=== PATIENT | female | born 1960 | race Caucasian/White ===

== ENCOUNTER 2023-11-07 13:04 | Outpatient (CLI) | payer BC, SELFPAY ==
[2023-11-07 14:35] LABS: Basophils Percent Auto 0.3 % (0.2-1.2); Eosinophils Percent Auto 0.3 % (0-4.4); Hematocrit 39.7 % (37.0-47.0); Hemoglobin 12.7 g/dL (12.0-15.0); Immature Granulocyte Absolute 0.03 K/mm3 (0.00-0.031); Immature Granulocyte Percent A 0.3 % (0-0.5); Lymphocytes Absolute Auto 2.53 K/mm3 (0.9-3.2); Lymphocytes Percent Auto 26.3 % (18.3-44.2); Mean Corpuscular Hemoglobin 32.7 pg (26-34); Mean Corpuscular Volume 102.3 fl (80-100); Mean Platelet Volume 8.8 fl (7.4-10.4); Monocytes Absolute Auto 0.6 K/mm3 (0.1-0.6); Neutrophils Absolute Auto 6.4 K/mm3 (1.3-6.7); Neutrophils Percent Auto 66.8 % (45.5-73.1); Platelet Count Result 250 k/mm3 (150-375); Red Blood Count 3.88 M/mm3 (4.2-5.4); Red Cell Distribution Width 13.2 % (11.5-14.5); White Blood Count 9.6 K/mm3 (4.5-10.0)
[2023-11-07 14:47] LABS: Alanine Aminotransferase 13 U/L (6-35); Albumin Level 3.9 g/dL (3.5-5.1); Alkaline Phosphatase 92 U/L (38-126); Anion Gap 4 mmol/L (8-16); Aspartate Amino Transferase 24 U/L (14-36); Bilirubin,Total 0.4 mg/dL (0.2-1.3); Blood Urea Nitrogen 11 mg/dL (7-17); Calcium 9.1 mg/dL (8.4-10.2); Carbon Dioxide 31 mmol/L (22-30); Chloride 105 mmol/L (98-107); Estimated Glomerular Filt Rate > 60; Glucose 112 mg/dL (65-110); Potassium 3.8 mmol/L (3.4-5.0); Sodium 140 mmol/L (137-145)
[2023-11-07 14:49] LABS: Prothrombin Time 14.1 Seconds (11.1-14.7)
[2023-11-07 14:50] LABS: Partial Thromboplastin Time 34.5 SECONDS (22.3-36.8)
== END 2023-11-07 13:05 | disposition home or self-care (01) ==
PROVIDERS: PCP Family Medicine; Visit Provider Urology
DX: Z01.818 Encounter for other preprocedural examination (principal)
CPT/HCPCS: 36415; 80053; 85025; 85610; 85730; 86850; 86900; 86901

== ENCOUNTER 2023-11-14 01:35 | Day surgery (SDC) | payer BC, SELFPAY ==
--- NOTE | 2023-11-06 17:35 | PM.IMHP ---
H&P: HPI History of Present Illness Date/Time: 11/06/23 17:35 Chief Complaint: pelvic organ prolapse Narrative: post hysterectomy pelvic organ prolapse and stress incontinence noted on urodynamics. Desires surgical correction Review of Systems Review of Systems: All systems reviewed & are unremarkable except as noted in HPI and below
[2023-11-07 13:24] VITALS: BP 101/59; PULSE 62; RESP 16; TEMP 36.9; O2SAT 97; BMI 27.5
--- NOTE | 2023-11-07 13:40 | PC.NURSE ---
Addendum entered by Sirena Ashraf RN 11/10/23 15:30: PATIENT WAS BRIEFLY CANCELED R/T NEED FOR CLEARANCE. CLEARANCE RECEIVED TODAY AT 1427 AND PT PUT BACK ON SCHEDULE. NO CHANGE OF DATE OR TIMES FROM ORIGINAL SURGERY. PT CALLED, ALL PRE-OP INSTRUCTIONS REVIEWED. PT RELAYS UNDERSTANDING. Original Note: Report to the Outpatient Waiting Room, entrance under the green pavilion located off [facility], at time __6:00AM on date ___11/14/23____. Planned Procedure Time: __7:30AM . Time changes happen often and if your time is changed the preop area will call you the afternoon before. - You and your visitor will be asked to self-screen and do not enter if you have any COVID symptoms. - A mask is optional within the hospital at this time. Patients may have clear liquids (water, carbonated beverages, clear teas, apple juice) until 3 hours prior to surgery with a maximum of 20 ounces. - No food from midnight until time of surgery. Take the following medications with a SIP of water the morning of surgery: _ALPRAZOLAM, ALBUTEROL INHALER AND HYDROCODONE NEEDED DO NOT STOP ANY OF YOUR OTHER PRESCRIPTION MEDICATIONS PRIOR TO SURGERY ?EXCEPT THE FOLLOWING Medications to discontinue per physician ___HOLD ALL VITAMINS/SUPPLEMENTS 3 DAYS PRE-OP PER ANESTHESIA Date to take last dose____11/10/23 Please no make-up, nail [place] citizen, hairspray, perfume, deodorant, or body powder the day of surgery. No jewelry (including any body piercings) or valuables the day of surgery, leave them at home. Please take a shower or bath the night before, or the morning of, surgery with an antibacterial soap. Wear comfortable, loose fitting clothing. - Jewelry must be removed prior to entering the operating room. Rings and piercings that are not removed may be cut off. - The hospital will not accept responsibility for valuables. - Please leave all valuables, including medications, at home the day of surgery. If you are going home after surgery, a licensed diesel pile driver operator must drive you home. - NO public transportation without another adult if you receive anesthesia. - We recommend that an adult stay with you for 24 hours following discharge. - We also recommend that you do not drive, make important decision, drink alcoholic beverages, or take any drugs that were not prescribed by your health care provider for at least 24 hours after your discharge time. Follow any additional instructions given to you from your surgeon. If you or anyone in your household have experienced Covid symptoms in the past week, please notify your surgeon or the nurse liaison at the phone number below for possible testing. Telephone instructions given to __PATIENT & DAUGHTER and asked if any additional questions and then verbalized understanding. Patient advised to call surgeon office or pre surgery nurse liaison [phone] if any additional questions.
--- NOTE | 2023-11-13 10:10 | PM.IMHP ---
H&P: HPI History of Present Illness Date/Time: 11/13/23 10:10 Chief Complaint: Prolapse and stress incontinence Narrative: 63-year-old with post hysterectomy vaginal vault prolapse as well stress incontinence. She desires surgical correction Review of Systems Review of Systems: All systems reviewed & are unremarkable except as noted in HPI and below [facility] Social History Social History Smoking packs per day: 1 Smoking cigarettes per day: 20.0 Years smoked: 15 Smoking pack-years: 15.00 Smoking status: Current every day smoker Tobacco type: cigarettes Additional smoking assessment comments: CURRENTLY SMOKING LESS THAN A PACK/DAY Living arrangements: with family Additional living arrangements comments: BOYFRIEND Spiritual care concerns: No Meds Home Medications and Allergies Home Medications Medication Instructions Recorded Confirmed Type albuterol (refill) 90 90 mcg inhalation Q4-6H PRN 11/07/23 11/07/23 History mcg/actuation aerosol inhaler Shortness Of Breath Or Wheezing alprazolam 0.5 mg tablet 0.5 mg PO TID PRN Anxiety 11/07/23 11/07/23 History cholecalciferol (vitamin D3) 50 50 mcg PO DAILY 11/07/23 11/07/23 History mcg (2,000 unit) tablet hydrocodone 10 mg-acetaminophen 1 tablet PO QID PRN Pain 11/07/23 11/07/23 History 325 mg tablet trazodone 100 mg tablet 100 mg PO HS 11/07/23 11/07/23 History vitamin B complex (Vitamins B 1 cap PO DAILY 11/07/23 11/07/23 History Complex capsule) Allergies Allergy/AdvReac Type Severity Reaction Status Date / Time No Known Allergies Allergy Verified 11/07/23 13:17 Exam Narrative: No acute distress Normal breathing Positive urethral mobility Anterior wall at +2 Loss of apical support at -1-2 Assessment and Plan Assessment and plan (1) Prolapse of vaginal vault after hysterectomy: Code(s): N99.3 - Prolapse of vaginal vault after hysterectomy Status: Acute (2) YAMILKA (stress urinary incontinence, female): Code(s): N39.3 - Stress incontinence (female) (male) Status: Acute Plan Plan for robotic colpopexy and urethral sling. Understands risks of bleeding, infection, damage to organs, damage to urinary tract, recurrent or persistent prolapse recurrent or persistent incontinence, hip and leg pain, dyspareunia, mesh related complications including exposure and extrusion. Agrees to proceed.
[2023-11-14] VITALS (10 sets, daily range): BP systolic 113–132; BP diastolic 59–84; PULSE 53–80; RESP 12–18; TEMP 36.2–37; O2SAT 93–100
--- NOTE | 2023-11-14 04:35 | WPDHPUPDATE1 ---
History and Physical Update Update Date/Time: 11/14/23 04:35 History and Physical has been reviewed, including an updated exam of the patient. There are NO changes in the patient's condition. Risks, benefits, and alternatives have been discussed and questions answered. Patient agrees to proceed with procedure.
[2023-11-14] MEDS: LACTATED RINGERS 1,000 ML 30 ML IV CONT ×2 (06:40→10:21)
--- NOTE | 2023-11-14 07:05 | WPDANESEPPF ---
Anes - Initial Pre Proc Eval Procedure: Operation Date: 11/14/23 07:30 Proposed Procedures p Robotic Sacrocolpopexy, Urethral Sling - Aristeo Tillman MD Date/Time: 11/14/23 07:05 Surgeon: Aristeo Tillamn MD Pre Op Diagnosis: cystocele, stress incontinence Patient Data Age: 63 Gender: F Height: 1.61 m Weight: 70.1 kg Last Vital Signs Temp 36.7 C 11/14/23 06:17 Pulse 67 11/14/23 06:17 Resp 18 11/14/23 06:17 BP 120/73 11/14/23 06:17 Pulse Ox 99 11/14/23 06:17 O2 Del Method Room Air 11/14/23 06:17 Allergies Allergy/AdvReac Type Severity Reaction Status Date / Time No Known Allergies Allergy Verified 11/14/23 06:23 Home Medications Medication Instructions Recorded Confirmed Type albuterol (refill) 90 90 mcg inhalation Q4-6H PRN 11/07/23 11/07/23 History mcg/actuation aerosol inhaler Shortness Of Breath Or Wheezing alprazolam 0.5 mg tablet 0.5 mg PO TID PRN Anxiety 11/07/23 11/07/23 History cholecalciferol (vitamin D3) 50 50 mcg PO DAILY 11/07/23 11/14/23 History mcg (2,000 unit) tablet hydrocodone 10 mg-acetaminophen 1 tablet PO QID PRN Pain 11/07/23 11/07/23 History 325 mg tablet trazodone 100 mg tablet 100 mg PO HS 11/07/23 11/14/23 History vitamin B complex (Vitamins B 1 cap PO DAILY 11/07/23 11/14/23 History Complex capsule) Patient hx anesthesia problems: none Family hx anesthesia problems: none Results Review: All pre-operative results and documents have been reviewed as part of the pre-operative evaluation. [facility] Past Medical History Medical History (Updated 11/14/23 @ 07:16 by Silvestre Huber DO) Anxiety Chronic, continuous use of opioids 10 mg 3-4x daily Depression Social History Social History Smoking packs per day: 1 Smoking cigarettes per day: 20.0 Years smoked: 15 Smoking pack-years: 15.00 Smoking status: Current every day smoker Tobacco type: cigarettes Additional smoking assessment comments: CURRENTLY SMOKING LESS THAN A PACK/DAY Living arrangements: with family Additional living arrangements comments: BOYFRIEND Spiritual care concerns: No Anes - Eval Final PreProcedure Day of Procedure 11/14/23 07:05 Patient weight: overweight Heart: regular rate and rhythm Lungs: clear to auscultation Airway: Mallampati scale class II Neurological: alert and oriented Last oral intake: >/= 8 hours ASA classification: III Emergent: no Anesthetic plan: proceed Anesthesia type and monitoring: general ETT and standard monitoring Results Review: All pre-operative results and documents have been reviewed as part of the pre-operative evaluation. Informed Consent: The patient's anesthetic plan and its attendant risks and benefits were discussed with the patient/family/POA. Questions were solicited and answers provided to the satisfaction of the patient/family/POA.
[2023-11-14] MEDS: ceFAZolin 2 GM/D5W 50 ML 2 GM/50 ML BAG IVPB (07:23)
[2023-11-14] MEDS: BUPIVACAINE/EPINEPHRINE 0.5% 30 ML VIAL INFILTRATE (08:16)
--- NOTE | 2023-11-14 10:28 | W.PM.PROC2 ---
Procedure Note - Detailed Date of Procedure 11/14/23 Pre-op Diagnosis Vaginal vault prolapse, stress incontinence Post-op Diagnosis Same Procedure Performed Robotic sacral colpopexy, urethral sling, cystoscopy Surgeon Aristeo Tilmlan MD Anesthesia General Indications This is a woman with posthysterectomy vaginal wall prolapse. Stress incontinence is noted on urodynamics. She presents for the above procedure. She understands risks of bleeding, infection, damage surrounding organs, recurrence of prolapse, persistent prolapse, recurrent or persistent stress incontinence, postoperative voiding dysfunction including incontinence retention, hip and leg pain, dyspareunia, mesh exposure extrusion, need for ancillary procedures. She agrees to proceed Findings See below Description of Procedure She was correctly identified. Informed consent obtained. She is brought to the operating room. She was given general anesthesia. She was placed in the lithotomy position. She was given appropriate perioperative antibiotics. She was prepped and draped in a sterile fashion. A time-out performed. I anesthetized the skin 3 fingerbreadths cephalad to the umbilicus. I incised the skin. I located the fascia. I grasped the fascia with Yumiko clamps. I incised the fascia sharply and a Cyr type technique. I placed Vicryl sutures for later fascial closure. I placed a midline trocar. Under direct vision placed 2 additional trocars in the right upper quadrant and 2 additional trocars in the left upper quadrant. She was placed in steep Trendelenburg. The robot was docked. I sat at the console. She had some adhesions of colonic epiploica in the pelvis. These were all taken down sharply taking great care not to injure the colon. This allowed the colon to get out of the deep pelvis. With the Sizer in the vagina and created a plane on the anterior and posterior vaginal wall for several cm taking great care not to injure the vagina, bladder, or rectum. Of note there was significant adherence of the bladder to the anterior vaginal wall. I took great care to not injure the bladder. I took great care not to cause a vaginotomy as well. She had a less scarring on the posterior dissection. I introduced the mesh into the vagina. I sewed the anterior leaflet of mesh on the anterior vaginal wall and posterior leaf of the mesh on the posterior vaginal wall with several sutures of 2 0 Aston-Jose taking great care not to go through and through. I then opened up the peritoneum over the sacral promontory. I carried this incision into the cul-de-sac. I freed up the edges for later retroperitonealization of the mesh. I located the anterior longitudinal ligament of the sacrum. I cleaned off any fatty tissues. I then tensioned my mesh appropriately. I did a vaginal exam to ensure prolapse reduction without undue tension. There was 1 stitch which had gone through and through. This was removed robotically. There was no other stitch exposure in the vagina. I then sewed the proximal leaflet of mesh onto the ligament with 4 sutures of 2 0 Aston-Jose. I then used a 2 0 Monocryl to meticulously retroperitonealized all mesh. I allowed the colon to go back into its normal anatomic location. There is no sign of impingement. He had an was then exited. Fascial sutures were closed. The wounds were all irrigated and closed with 4 O Monocryl and skin glue. She was then repositioned and prepped for urethral sling. I marked out the inner thigh incisions. I anesthetized the skin and made those incisions. I then anesthetized the anterior vaginal wall over the mid urethra. I made a 1 cm incision. I dissected out laterally taking great care not to injure the urethra vaginal wall. I passed the helical trocars. I did this 1st on the left than on the right from the thigh incision towards the vaginal incision. Sling was connected to the trocars and brought out through the thigh incision. I melisa
[2023-11-14] MEDS: fentaNYL CITRATE INJ (*CRX) 100 MCG/2 ML VIAL 25 MCG IV PUSH ×4 (10:47→11:13)
--- NOTE | 2023-11-14 11:41 | PC.NURSE ---
This patient, Heather Piper, was received from PACU per stretcher to room 289. Patient/family oriented to unit policies and routines
[2023-11-14] MEDS: KCL 20 MEQ/D5/0.45% SOD CHL 1,000 ML 100 ML IV CONT ×2 (12:10→20:31)
[2023-11-14] MEDS: ceFAZolin 1 GM/NS 50 ML 1 GM/50 ML BAG IVPB ×2 (14:56→22:55)
[2023-11-14] MEDS: KETOROLAC 15 MG/ML VIAL (*BKC) IV PUSH (20:05)
[2023-11-14] MEDS: traZODone HCL 50 MG TABLET 100 MG PO (20:31)
[2023-11-15 00:45] VITALS: BP 112/62; PULSE 65; RESP 16; TEMP 36.9; O2SAT 95
[2023-11-15 04:30] VITALS: BP 122/66; PULSE 64; PULSE 65; RESP 16; RESP 18; TEMP 36.6; O2SAT 95; O2SAT 96
[2023-11-15] MEDS: ONDANSETRON INJ 4 MG/2 ML VIAL IV PUSH (05:04)
[2023-11-15] MEDS: ceFAZolin 1 GM/NS 50 ML 1 GM/50 ML BAG IVPB (07:11)
[2023-11-15] MEDS: DOCUSATE SODIUM 100 MG CAPSULE PO (07:15)
[2023-11-15 07:19] VITALS: BP 125/62; PULSE 64; RESP 16; TEMP 37.1; O2SAT 92
--- NOTE | 2023-11-15 07:35 | WPDANESPN ---
Anes - Prog Note Post-Op Date/Time: 11/15/23 07:35 Cardiovascular status: normal Respiratory status: normal Airway patency: baseline Mental status: baseline Post-Op hydration status: normal Vital Signs: Last Vital Signs Temp 37.1 C 11/15/23 07:19 Pulse 64 11/15/23 07:19 Resp 16 11/15/23 07:19 BP 125/62 11/15/23 07:19 Pulse Ox 92 11/15/23 07:19 O2 Del Method Room Air 11/15/23 04:30 O2 Flow Rate 6 11/14/23 10:30 Pain Score (VAS): 10 I/O: Intake & Output 11/14/23 11/14/23 11/15/23 15:59 23:59 07:59 Intake Total 350 1250 300 Output Total 150 1850 1250 Balance 200 -600 -950 Post-procedural complaints: none Patient Feedback: Patient satisfied with anesthetic care.
--- NOTE | 2023-11-15 08:58 | PM.DS ---
DS: Admitting Diagnosis Discharge Date 11/15/2023 Admitting Diagnosis Vaginal vault prolapse, stress urinary incontinence DS: Discharge Diagnosis Discharge Diagnosis (1) YAMILKA (stress urinary incontinence, female): Code(s): N39.3 - Stress incontinence (female) (male) Status: Acute (2) Prolapse of vaginal vault after hysterectomy: Code(s): N99.3 - Prolapse of vaginal vault after hysterectomy Status: Acute DS: Summary Hospital Course Hospital Course: Heather Piper is a 63-year-old female with post hysterectomy vaginal wall prolapse and stress urinary incontinence. She presented to [facility] on 11/14/2023 and underwent robotic sacrocolpopexy, urethral sling, and cystoscopy by Dr. Tillman. She tolerated this procedure very well. She had minimal postoperative pain. Her Lopez catheter was removed on postoperative day 1 and she was able to void without difficulty with low residual. She was able to tolerate her diet. She was ambulating without difficulty. She will be discharged home. Discussed postoperative restrictions and reviewed scheduled follow-up. All questions answered. She felt comfortable with plans to return home. Time Spent with Patient Time attestation: Total time spent providing and/or coordinating discharge services: 35 minutes Exam Narrative: General: Awake, alert, comfortable, no acute distress HEENT: Normocephalic, atraumatic, sclerae anicteric Respiratory: Normal respiratory effort, no accessory muscle use Abdomen: Nondistended, soft, nontender Skin: Normal coloration, warm and dry Neurologic: No focal neuro deficits noted Psychiatric: Appropriate mood and affect, judgment and insight intact Discharge Plan Discharge Patient Disposition: Home, Self-Care Discharge Instructions: No lifting >20lb, exercise for 6 weeks No tub bath or pool for 2 weeks No intercourse 6 weeks Follow up appt on 01/03/24 at 3:00 pm Patient Instructions: Antibiotic Form Stand Alone Forms: General Discharge Information, General Discharge Instructions Follow-up/Referrals: Aristeo Tillman MD [Physician] - (6 weeks) Discharge Medications: New hydrocodone-acetaminophen 10-325 mg tablet 1 tablet PO Q6H PRN (Reason: pain) Qty: 20 0RF docusate sodium [Colace] 100 mg capsule 100 mg PO BID Qty: 30 0RF Continued hydrocodone-acetaminophen 10-325 mg tablet 1 tablet PO QID PRN (Reason: Pain) alprazolam 0.5 mg tablet 0.5 mg PO TID PRN (Reason: Anxiety) trazodone 100 mg tablet 100 mg PO HS vitamin B complex [Vitamins B Complex] Capsule 1 cap PO DAILY cholecalciferol (vitamin D3) 50 mcg (2,000 unit) Tablet 50 mcg PO DAILY albuterol (refill) 90 mcg/actuation Aerosol 90 mcg INHALATION Q4-6H PRN (Reason: Shortness Of Breath Or Wheezing)
[2023-11-15] MEDS: ENOXAPARIN 30 MG/0.3 ML SYRINGE SUB-Q (09:32)
--- NOTE | 2023-11-15 13:00 | PC.NURSE ---
Nurse went in to check on patient to see if she needed anything while waiting for a ride and when this RN went into the room it was discovered that the patient had already left without calling out to be walked down per instruction.
== END 2023-11-15 13:00 | disposition home or self-care (01) ==
LOC: ANHSURGERY 06:08 → ANHOB2 11:37
PROVIDERS: PCP Family Medicine; Visit Provider Urology
PROC: (CPT 57425; principal; 2023-11-14 07:30)
DX: N99.3 Prolapse of vaginal vault after hysterectomy (principal); N39.3 Stress incontinence (female) (male); F41.9 Anxiety disorder, unspecified; F32.A Depression, unspecified; Z79.891 Long term (current) use of opiate analgesic; Z79.51 Long term (current) use of inhaled steroids; F17.210 Nicotine dependence, cigarettes, uncomplicated
CPT/HCPCS: 57425; 57288; S2900; 99199; A9270; C1771; C1781; J0690; J1100; J1650; J1885; J2250; J2405; J2704; J3010; J3480; J7030; J7120